=== PATIENT | female | born 1965 | race Caucasian/White ===

== ENCOUNTER 2023-01-29 10:39 | Outpatient (CLI) | payer BC ==
[~2023-01-29 10:39] MED LIST: Magnevist 469MG/ML 20 ML VIAL ONE
== END 2023-01-29 10:40 | disposition home or self-care (01) ==
LOC: CSHMRI 10:39
PROVIDERS: ATTEND Physician Assistant
DX: R51.9 Headache, unspecified (principal)
CPT/HCPCS: 70553